=== PATIENT | male | born 1955 | race Caucasian/White ===

== ENCOUNTER → 2024-09-19 06:55 | Outpatient (REF) | payer BC, SELFPAY | LOC: RAD 06:55 | PROVIDERS: ATTENDING PHYSICIAN Internal Medicine Cardiovascular Disease; FAMILY PHYSICIAN Family Medicine | DX: R07.9 Chest pain, unspecified (principal); Z13.6 Encounter for screening for cardiovascular disorders | CPT/HCPCS: 75571; 76770 ==

== ENCOUNTER → 2025-10-30 09:19 | Outpatient (REF) | payer BC, SELFPAY | LOC: RCS 09:19 | PROVIDERS: ATTENDING PHYSICIAN Family Medicine | DX: R07.9 Chest pain, unspecified (principal); R53.83 Other fatigue | CPT/HCPCS: 93225; 93226 ==